=== PATIENT | male | born 1965 | race Caucasian/White ===

== ENCOUNTER → 2023-07-31 | Outpatient (CLI) | payer OTHER ==
--- NOTE | 2023-08-01 08:32 | MR ---
EXAMINATION TYPE: MR wrist RT wo con DATE OF EXAM: 07/31/2023 COMPARISON: NONE, no radiographic correlation available HISTORY: 58-year-old male Right wrist pain and swelling, Hx of ruptured ligament with tendon transfer surgery, TECHNIQUE: Multiplanar, multisequence images of the right wrist were obtained without IV contrast. FINDINGS: There is dorsal perilunate subluxation/dislocation with a large impaction deformity of the volar prox imal capitate as it articulates with the dorsal corner of the lunate. Reactive marrow edema is presen t but the impaction deformity appears slightly sclerotic. This may result in forced volar subluxation of the lunate which has slight dorsal tilt. There may be some underlying rotary subluxation of the scaphoid. The conventional planes for imaging the scapholunate ligament are secondarily very limited but there is extensive heterogeneity and probable significant tearing of the scapholunate ligament. Moderate radiocarpal joint effusion. There appears to be a large through thickness tear involving the central disc of the TFC, particularl y on the dorsal aspect. Small effusion in the distal radioulnar joint and moderate effusion and synov itis in the prestyloid recess. There is degenerative subchondral cystic change at the pisiform triquetral joint. Some patchy osseous edema not only involving the and capitate and lunate bone but also within the sca phoid bone without discrete fracture line. There is moderate tenosynovial fluid deep to the flexor tendons at the level of the CMC joints. Dorsal extensor tendons show no gross abnormality. Median nerve at the wrist appears fairly normal. IMPRESSION: 1. Dorsal perilunate subluxation/dislocation with a large impaction fracture deformity of the volar p roximal capitate as it articulates with the dorsal corner of the lunate. The margin of the impaction deformity appears slightly sclerotic suggesting a more subacute to chronic injury. Clinically correla te. However, osseous edema within both the lunate and capitate suggests abnormal abutment and motion with reactive edema. 2. This new articulation appears to force volar subluxation of the lunate at the radiocarpal joint. T his secondarily alters the conventional imaging planes of the scapholunate interval. Suspect underlyi ng injury/tear of the scapholunate ligament with rotary subluxation of the scaphoid and reactive patc hy edema in the scaphoid bone as well. Recommend assessing the angle between the lunate and scaphoid on lateral radiograph. 3. Moderate radiocarpal joint effusion. 4. Moderate focal tenosynovitis deep to the volar flexor tendons at the level of the CMC joints. Some of this fluid may extend into one of the radial sided flexor digitorum tendons and a significant par tial-thickness tendon tear is difficult to exclude (coronal series 401 image 15 and axial series 701 image 8). 5. Large through thickness tear involving the dorsal aspect of the central disc of the TFC.
== END | disposition home or self-care (01) ==
LOC: RADMRIMAIN 20:00
PROVIDERS: ATTEND Orthopaedic Surgery Hand Surgery
DX: S63.391A Traumatic rupture of other ligament of right wrist, initial encounter (principal); S63.021A Subluxation of radiocarpal joint of right wrist, initial encounter; M19.031 Primary osteoarthritis, right wrist; R20.2 Paresthesia of skin; M65.9 Synovitis and tenosynovitis, unspecified; M66.341 Spontaneous rupture of flexor tendons, right hand; M25.431 Effusion, right wrist; Z48.89 Encounter for other specified surgical aftercare

== ENCOUNTER → 2023-08-21 | Outpatient (CLI) | payer OTHER | END | disposition home or self-care (01) | LOC: LABWHC1 10:24 | PROVIDERS: ATTEND Orthopaedic Surgery Hand Surgery | DX: S63.391D Traumatic rupture of other ligament of right wrist, subsequent encounter (principal); M25.531 Pain in right wrist; M19.031 Primary osteoarthritis, right wrist; M65.9 Synovitis and tenosynovitis, unspecified; R20.2 Paresthesia of skin; Z48.89 Encounter for other specified surgical aftercare; M66.341 Spontaneous rupture of flexor tendons, right hand | CPT/HCPCS: 36415; 84550 ==

== ENCOUNTER → 2023-08-25 | Outpatient (CLI) | payer OTHER ==
[2023-08-25 15:42] LABS: Streptolysin O Ab(ASO) 109 IntlUnit/L (0-200)
[2023-08-25 15:52] LABS: C Reactive Protein <0.30 mg/dL (0.00-0.80); Rheumatoid Factor, Qnt <15 IU/mL (0-15); Uric Acid 5.5 mg/dL (3.7-8.7)
[2023-08-25 16:51] LABS: HCT 40.3 % (39.6-50.0); HGB 13.5 g/dL (13.0-17.0); MCH 32.1 pg (27.0-32.0); MCHC 33.5 g/dL (32.0-37.0); MCV 95.7 FL (80.0-97.0); Mean Platelet Volume 9.4 FL (9.5-12.2); NRBC Per 100 WBC 0 X 10*3/uL (0.00-0.01); Platelet Count 220 X 10*3/uL (140-440); RBC 4.21 X 10*6/uL (4.40-5.60); RDW 11.9 % (11.5-14.5); WBC 3.61 X 10*3/uL (4.50-10.00)
[2023-08-25 17:35] LABS: Erythrocyte Sedimentation Rate 7 mm/Hr (0-20)
[2023-08-26 12:02] LABS: HLA B27 NEGATIVE
== END | disposition home or self-care (01) ==
LOC: LABWHC1 08:10
PROVIDERS: ATTEND Orthopaedic Surgery Hand Surgery
DX: Z48.89 Encounter for other specified surgical aftercare (principal); M19.031 Primary osteoarthritis, right wrist; M65.9 Synovitis and tenosynovitis, unspecified; S63.391D Traumatic rupture of other ligament of right wrist, subsequent encounter; X58.XXXD Exposure to other specified factors, subsequent encounter; M66.341 Spontaneous rupture of flexor tendons, right hand; R20.2 Paresthesia of skin
CPT/HCPCS: 36415; 83520; 84443; 84550; 85027; 85652; 86038; 86060; 86140; 86431; 86618; 86812

== ENCOUNTER → 2024-04-05 | Outpatient (CLI) | payer OTHER ==
[2024-04-05 17:24] LABS: Basophils # (A) 0.06 X 10*3/uL (0.00-0.10); Basophils % (A) 1.4 %; Eosinophils # (A) 0.13 X 10*3/uL (0.04-0.35); HCT 40.6 % (39.6-50.0); HGB 13.8 g/dL (13.0-17.0); Lymphocytes # (A) 1.15 X 10*3/uL (0.90-5.00); Lymphocytes % (A) 26.4 %; MCV 97.1 FL (80.0-97.0); Mean Platelet Volume 9.3 FL (9.5-12.2); Monocytes # (A) 0.48 X 10*3/uL (0.20-1.00); NRBC Per 100 WBC 0 X 10*3/uL (0.00-0.01); Neutrophils # (A) 2.51 X 10*3/uL (1.80-7.70); Neutrophils % (A) 57.7 %; Platelet Count 240 X 10*3/uL (140-440); RBC 4.18 X 10*6/uL (4.40-5.60); RDW 12.7 % (11.5-14.5); WBC 4.35 X 10*3/uL (4.50-10.00)
[2024-04-05 18:25] LABS: ALT 34 U/L (10-49); AST 29 U/L (14-35); Albumin 4.4 g/dL (3.8-4.9); Alkaline Phosphatase 111 U/L (41-126); BUN/Creat Ratio 15.78 Ratio (12.00-20.00); Blood Urea Nitrogen 14.2 mg/dL (9.0-27.0); Calcium 9.5 mg/dL (8.7-10.3); Chloride 104 mmol/L (96-109); Chol/HDL Ratio 3.32 Ratio; Globulin 2.1 g/dL (1.6-3.3); Glucose 106 mg/dL (70-110); LDL Cholesterol,Calculated 150.8 mg/dL (0.0-131.0); Potassium 5.1 mmol/L (3.5-5.5); Prostate Specific Antigen 1.02 ng/mL (0.000-3.500); Sodium 140 mmol/L (135-145); T4, Free (Free Thyroxine) 1.32 ng/dL (0.80-1.80); Total Bilirubin 0.6 mg/dL (0.3-1.2); Total Protein 6.5 g/dL (6.2-8.2)
== END | disposition home or self-care (01) ==
LOC: LABWHC1 09:38
PROVIDERS: ATTEND Family Medicine
DX: Z00.01 Encounter for general adult medical examination with abnormal findings (principal); Z12.5 Encounter for screening for malignant neoplasm of prostate
CPT/HCPCS: 36415; 80053; 80061; 83036; 84153; 84439; 84443; 85025